=== PATIENT | female | born 1945 | race African-American/Black ===

== ENCOUNTER 2016-08-07 12:18 | Emergency (ER) | payer OTHER ==
[~2016-08-07] VITALS: Ht 152.4 cm; Wt 57.0 kg
[~2016-08-07 12:18] MED LIST: CAPT25TA2 PO; CARV3.12 PO; GLUCTAB PO; GLYB1TAB51 PO; HYDR12.56 PO
[2016-08-07 12:21] VITALS: BP 230/112; PULSE 102; RESP 20; TEMP 98.1; O2SAT 99
--- NOTE | 2016-08-07 13:23 | PD ---
HPI Chief Complaint: Diabetic Time Seen by Provider: 13:23 Travel History International Travel<30 days: No Contact w/Intl Traveler<30days: No Traveled to known affect area: No History of Present Illness HPI 70-year-old female with history of diabetes presents to emergency department for evaluation of elevated blood glucose. Patient states it has been "running high." She denies any associated symptoms with it. No chest or tightness. No difficulty breathing. No recent illnesses, fever, or chills. When told the patient's blood glucose was 404, patient was thrilled that it was "coming down. " PFSH Past Medical History Cardiovascular Problems: Yes Diabetes: Yes Diminished Hearing: No Hypertension: Yes Menopausal: Yes : 0 Social History Alcohol Use: No Tobacco Use: No Substance Use: No Allergies-Medications (Allergen,Severity, Reaction): Coded Allergies: No Known Allergies (Verified , 10/30/13) Reported Meds & Prescriptions Reported Meds & Active Scripts Active Reported Hctz (Hydrochlorothiazide) Unknown Strength Cap Unknown Dose PO DAILY Carvedilol Unknown Strength Tab Unknown Dose PO DAILY Metformin Hcl (Metformin HCl) 500 Mg Tab 500 Mg PO BID Glyburide 5 Mg Tab 5 Mg PO DAILY Captopril 25 Mg Tab 0 PO BID UNKNOWN DOSE Review of Systems Except as stated in HPI: all other systems reviewed are Neg Physical Exam Narrative GENERAL: He SKIN: Warm and dry. HEAD: Atraumatic. Normocephalic. EYES: Pupils equal and round. No scleral icterus. No injection or drainage. ENT: No nasal bleeding or discharge. Mucous membranes pink and moist. NECK: Trachea midline. No JVD. CARDIOVASCULAR: Tachycardic rate and rhythm. No murmur appreciated. RESPIRATORY: No accessory muscle use. Clear to auscultation. Breath sounds equal bilaterally. GASTROINTESTINAL: Abdomen soft, non-tender, nondistended. Hepatic and splenic margins not palpable. MUSCULOSKELETAL: No obvious deformities. No clubbing. No cyanosis. No edema. NEUROLOGICAL: Awake and alert. No obvious cranial nerve deficits. Motor grossly within normal limits. Normal speech. Data Data Last Documented VS Vital Signs Date Time Temp Pulse Resp B/P Pulse Ox O2 Delivery O2 Flow Rate FiO2 08/07/16 12:21 98.1 102 20 230/112 99 Room Air Orders Electrocardiogram (08/07/16 13:05) Basic Metabolic Panel (Bmp) (08/07/16 13:05) Complete Blood Count With Diff (08/07/16 13:05) Beta Hydroxybutyrate (Acetone) (08/07/16 13:05) Urinalysis - C+S If Indicated (08/07/16 13:05) MDM Medical Decision Making Medical Screen Exam Complete: Yes Emergency Medical Condition: Yes Medical Record Reviewed: Yes Differential Diagnosis Hyperglycemia versus DKA versus electively abnormality versus sepsis Narrative Course 70-year-old female presents to emergency department for evaluation. Patient has blood glucose of 405 and is quite hypertensive here in the emergency department triage area. Workup was initiated. Once a medical bed becomes available, patient will be transferred and care assumed by that provider. Condition: Stable Kathleen Brice Aug 07, 2016 13:23
[2016-08-07] MEDS ORDERED: LISI10TA3 PO (14:28)
[2016-08-07] MEDS ORDERED: CARV3.12 PO (14:28)
[2016-08-07] MEDS ORDERED: DONE10TA7 PO (14:28)
[2016-08-07] MEDS ORDERED: LEVEMIR SQ (14:28)
[2016-08-07] MEDS ORDERED: CLON.1T T-DERMAL (14:28)
[2016-08-07] MEDS ORDERED: SODIUM CHLOR 0.9% 1000 ML INJ 1,000 ML IV ONE (14:30)
--- NOTE | 2016-08-07 14:37 | PD ---
Physical Exam Narrative GENERAL: Well-nourished, well-developed patient. SKIN: Warm and dry. HEAD: Normocephalic and atraumatic. EYES: No injection or drainage. ENT: No nasal drainage noted. NECK: Supple, trachea midline. CARDIOVASCULAR: Regular rate and rhythm RESPIRATORY: Breath sounds equal bilaterally. No accessory muscle use. GASTROINTESTINAL: Abdomen soft, non-tender, nondistended. Extremities:Pain with palpation of right knee, no pain with other joints , neurovascularly intact, no lacerations over, compartments soft. NEUROLOGICAL: Awake and alert. Moves all extremities. Normal speech. Data Data Last Documented VS Vital Signs Date Time Temp Pulse Resp B/P Pulse Ox O2 Delivery O2 Flow Rate FiO2 08/07/16 16:45 72 18 190/84 99 08/07/16 12:21 98.1 Room Air Orders Electrocardiogram (08/07/16 13:05) Basic Metabolic Panel (Bmp) (08/07/16 13:05) Complete Blood Count With Diff (08/07/16 13:05) Beta Hydroxybutyrate (Acetone) (08/07/16 13:05) Urinalysis - C+S If Indicated (08/07/16 13:05) Blood Glucose (08/07/16 14:19) Sodium Chlor 0.9% 1000 Ml Inj (Ns 1000 M (08/07/16 14:30) Carvedilol (Coreg) (08/07/16 14:45) Enalaprilat Inj (Vasotec Inj) (08/07/16 14:45) Urine Culture (08/07/16 15:54) Ceftriaxone Inj (Rocephin Inj) (08/07/16 17:45) Lidocaine Pf 1% Inj (Xylocaine-Mpf 1% In (08/07/16 17:45) Labs Laboratory Tests Test 08/07/16 08/07/16 14:40 15:54 White Blood Count 8.0 TH/MM3 Red Blood Count 4.74 MIL/MM3 Hemoglobin 14.2 GM/DL Hematocrit 43.3 % Mean Corpuscular Volume 91.2 FL Mean Corpuscular Hemoglobin 30.0 PG Mean Corpuscular Hemoglobin 32.9 % Concent Red Cell Distribution Width 13.8 % Platelet Count 252 TH/MM3 Mean Platelet Volume 8.7 FL Neutrophils (%) (Auto) 59.8 % Lymphocytes (%) (Auto) 32.5 % Monocytes (%) (Auto) 6.3 % Eosinophils (%) (Auto) 0.7 % Basophils (%) (Auto) 0.7 % Neutrophils # (Auto) 4.8 TH/MM3 Lymphocytes # (Auto) 2.6 TH/MM3 Monocytes # (Auto) 0.5 TH/MM3 Eosinophils # (Auto) 0.1 TH/MM3 Basophils # (Auto) 0.1 TH/MM3 CBC Comment DIFF FINAL Differential Comment Sodium Level 137 MEQ/L Potassium Level 4.8 MEQ/L Chloride Level 101 MEQ/L Carbon Dioxide Level 28.5 MEQ/L Anion Gap 8 MEQ/L Blood Urea Nitrogen 28 MG/DL Creatinine 1.42 MG/DL Estimat Glomerular Filtration 44 ML/MIN Rate Random Glucose 290 MG/DL Calcium Level 9.8 MG/DL B-Hydroxybutyrate 1.02 MMOL/L Urine Color LIGHT-YELLOW Urine Turbidity HAZY Urine pH 5.5 Urine Specific [place] 1.019 Urine Protein 100 mg/dL Urine Glucose (UA) 1000 mg/dL Urine Ketones 10 mg/dL Urine Occult Blood SMALL Urine Nitrite NEG Urine Bilirubin NEG Urine Urobilinogen LESS THAN 2.0 MG/DL Urine Leukocyte Esterase MOD Urine RBC 5 /hpf Urine WBC 10 /hpf Urine Squamous Epithelial 2 /hpf Cells Urine Bacteria RARE /hpf Microscopic Urinalysis Comment CULTURE INDICATED MDM Supervised Visit with [facility]: Yes Interpretation(s) Outpatient right knee x-ray no acute CBC & BMP Diagram 08/07/16 14:40 UA with possible signs of infection Narrative Course I, Dr. gill, have reviewed the advance practice practitioner's documentation and am in agreement, met with the patient face to face, made the diagnosis, and the medical decision making was done by me. *My assessment and Findings: 70-year-old female presents with elevated blood pressure and glucose as an outpatient. She states she was feeling fine but her home health nurse advised her to come in to get checked out. She states her sugar at home was 545. She does note she has been having frequent falls but did not hit her head or black out. She states she had an x-ray of her right knee yesterday but did not get the results from [facility] yet. We will follow protocol ordered from triage and dose with home blood pressure medication and IV fluid bolus while awaiting further testing. In terms of glucose patient states that she already did her insulin prior to arrival 190/84 on recheck, labs mild elevation in creatinine with last from 3 years ago , this will need to be followed with her primary care physician, glucose is mildly elevated with bicarbonate normal, urine with possible signs of infection and patient denies complaints of uti Will give one dose of rocephin in ed as patient can't swallow pills while awaiting culture, she will continue to take her blood pressure medication and insulin like she should keeping a log with assistance through her home health nurse,Patient denies any new complaints and states that they are feeling better. Patient happy with care, all questions answered. Patient knows that follow up is incumbent on them and to return to the emergency room immediately if new or worsening symptoms develop. Patient given strict return precautions, vitals reviewed and are normal, agrees to further workup as an outpatient. . Diagnosis Primary Impression: Hypertensive urgency Additional Impressions: Poorly controlled diabetes mellitus UTI (urinary tract infection) Qualified Code: N39.0 - Urinary tract infection without hematuria, site unspecified Elevated serum creatinine Patient Instructions: General Instructions Additional Instruction: Return as needed, follow with primary tomorrow, keep blood pressure and sugar log Med/Other Pt SpecificInfo: No Change to Meds Disposition: 01 DISCHARGE HOME Condition: Stable Kelsy Gill MD Aug 07, 2016 14:37 Kelsy Gill MD Aug 07, 2016 14:37
[2016-08-07] MEDS ORDERED: CARVEDILOL 3.125 MG TAB PO ONE (14:45)
[2016-08-07] MEDS ORDERED: ENALAPRILAT 1.25 MG/ML VIAL IV PUSH ONE (14:45)
[2016-08-07 15:05] LABS: AUTOMATED NEUTROPHIL # 4.8 TH/MM3 (1.8-7.7); BASOPHIL # 0.1 TH/MM3 (0-0.2); BASOPHIL % 0.7 % (0.0-2.0); EOSINOPHIL # 0.1 TH/MM3 (0-0.4); EOSINOPHIL % 0.7 % (0.0-4.0); HEMATOCRIT 43.3 % (35.0-46.0); HEMO FLAGS DIFF FINAL; LYMPH % 32.5 % (9.0-44.0); LYMPHOCYTE # 2.6 TH/MM3 (1.0-4.8); MEAN CELL VOLUME 91.2 FL (80.0-100.0); MEAN CORPUSCULAR HGB CONC 32.9 % (32.0-36.0); MONO % 6.3 % (0.0-8.0); NEUT % 59.8 % (16.0-70.0); PLATELET COUNT 252 TH/MM3 (150-450); RED BLOOD COUNT 4.74 MIL/MM3 (4.00-5.30); RED CELL DISTRIBUTION WIDTH 13.8 % (11.6-17.2)
[2016-08-07 15:16] LABS: BETA-HYDROXYBUTYRATE 1.02 MMOL/L (0.00-0.39)
[2016-08-07 15:19] LABS: BICARBONATE 28.5 MEQ/L (21.0-32.0)
[2016-08-07 15:23] LABS: POTASSIUM 4.8 MEQ/L (3.5-5.1)
[2016-08-07 16:25] LABS: BACTERIA, URINE RARE /hpf; BLOOD, URINE SMALL (NEG); COMMENT (UR) CULTURE INDICATED; CULTURE IF INDICATED CULTURE INDICATED; GLUCOSE,URINE 1000 mg/dL (NEG); KETONE, URINE 10 mg/dL (NEG); NITRITE,URINE NEG (NEG); PH, URINE 5.5 (5.0-8.5); SQUAMOUS EPITHELIAL CELL URINE 2 /hpf (0-5); URINE COLOR LIGHT-YELLOW (YELLW/STRAW)
[2016-08-07 16:45] VITALS: BP 190/84; PULSE 72; RESP 18; O2SAT 99
[2016-08-07] MEDS ORDERED: MACR100C2 PO (17:05)
[2016-08-07] MEDS ORDERED: LIDOCAINE HCL 1% PF 30 ML VIAL XX ONE (17:45)
--- NOTE | 2016-08-08 18:32 | EKG ---
Date Performed: 08/07/2016 Time Performed: 14:47:54 PTAGE: 70 years EKG: Sinus rhythm RIGHT BUNDLE BRANCH BLOCK LEFT ANTERIOR FASCICULAR BLOCK VOLTAGE CRITERIA FOR LVH When compared to p revious tracing, rhythm is more clearly sinus. ABNORMAL ECG PREVIOUS TRACING : 10/30/2013 13.14 DOCTOR: Collin Devi Interpretating Date/Time 08/08/2016 18:31:22
== END 2016-08-07 18:45 | disposition home or self-care (01) ==
LOC: NEPE 12:18
DX: I16.0 Hypertensive urgency (principal); E11.65 Type 2 diabetes mellitus with hyperglycemia; N39.0 Urinary tract infection, site not specified; I10 Essential (primary) hypertension; R94.31 Abnormal electrocardiogram [ECG] [EKG]
CPT/HCPCS: 80048; 81001; 82010; 85025; 87086; 93005; 96361; 96372; 96374; 99283; J0696; J7030

== ENCOUNTER 2017-06-14 13:10 | Emergency (ER) | payer OTHER ==
[~2017-06-14] VITALS: Ht 149.9 cm; Wt 60.0 kg
[~2017-06-14 13:10] MED LIST changes: -CAPT25TA2 PO; +CLON.1T T-DERMAL; +DONE10TA7 PO; -GLUCTAB PO; -GLYB1TAB51 PO; -HYDR12.56 PO; +LEVEMIR SQ; +LISI10TA3 PO
[2017-06-14 13:13] VITALS: BP 206/112; PULSE 88; RESP 16; TEMP 98.5; O2SAT 99
[2017-06-14] MEDS ORDERED: ATOR10TA15 PO (13:42)
[2017-06-14] MEDS ORDERED: CLON0.1T PO (13:42)
[2017-06-14] MEDS ORDERED: KETOROLAC TROMETHAMINE 60 MG/2 ML (IM) VIAL IM ONE (14:30)
--- NOTE | 2017-06-14 14:47 | PD ---
HPI Chief Complaint: Fall Time Seen by Provider: 14:09 Travel History International Travel<30 days: No Contact w/Intl Traveler<30days: No Traveled to known affect area: No History of Present Illness HPI since fall c/o right hip/knee pain that's make it difficult to ambulate since the fall...pt denies loc, denies n/v/d/cp/abdpain/beth/back pain////....it occurred while she was trying to get into an suv and she misstepped and fell down. this was witnessed and no report of unconsciousness nor lightheadedness/ palpitations/cp prior to fall. PFSH Past Medical History Cardiovascular Problems: Yes Diabetes: Yes Diminished Hearing: No Hypertension: Yes Menopausal: Yes : 0 Social History Alcohol Use: No Tobacco Use: No Substance Use: No Allergies-Medications (Allergen,Severity, Reaction): Coded Allergies: No Known Allergies (Verified , 08/07/16) Reported Meds & Prescriptions Reported Meds & Active Scripts Active Ultram (Tramadol HCl) 50 Mg Tab 50 Mg PO Q4H PRN Reported Atorvastatin (Atorvastatin Calcium) 10 Mg Tab 10 Mg PO HS Clonidine (Clonidine HCl) 0.1 Mg Tab 0.1 Mg PO BID Levemir Inj (Insulin Detemir) 1,000 unit/ 10 ML Vial 1 Units SQ Do not mix with any other Insulin. Lisinopril 10 Mg Tab 10 Mg PO DAILY Carvedilol 3.125 Mg Tab 3.125 Mg PO BID Review of Systems General / Constitutional: No: Fever Eyes: No: Visual changes HENT: No: Headaches Cardiovascular: No: Chest Pain or Discomfort Respiratory: No: Shortness of Breath Gastrointestinal: No: Abdominal Pain Genitourinary: No: Dysuria Musculoskeletal: Positive: Pain Skin: No Rash Neurologic: No: Weakness Psychiatric: No: Depression Endocrine: No: Polydipsia Hematologic/Lymphatic: No: Easy Bruising Physical Exam Narrative GENERAL: SKIN: Warm and dry. HEAD: Atraumatic. Normocephalic. EYES: Pupils equal and round. No scleral icterus. No injection or drainage. ENT: No nasal bleeding or discharge. Mucous membranes pink and moist. NECK: Trachea midline. No JVD. CARDIOVASCULAR: Regular rate and rhythm. RESPIRATORY: No accessory muscle use. Clear to auscultation. Breath sounds equal bilaterally. GASTROINTESTINAL: Abdomen soft, non-tender, nondistended. MUSCULOSKELETAL: Extremities without clubbing, cyanosis, or edema. No obvious deformities. mild ttp along lateral prox thigh region, also mild edema to rt knee, but able to bear weight. NEUROLOGICAL: Awake and alert. No obvious cranial nerve deficits. Motor grossly within normal limits. Five out of 5 muscle strength in the arms and legs. Normal speech. PSYCHIATRIC: Appropriate mood and affect; insight and judgment normal. Data Data Last Documented VS Orders Orders Knee, Complete (4vws) (06/14/17 ) Ketorolac Inj (Toradol Inj) (06/14/17 14:30) Hip, Uni(Ap&Lat) W Ap Pelvis (06/14/17 ) Ed Discharge Order (06/14/17 15:41) [facility] Medical Decision Making Medical Screen Exam Complete: Yes Emergency Medical Condition: Yes Medical Record Reviewed: Yes Differential Diagnosis fx v dislocation v subluxation v contusion Narrative Course HIP/PELVIS AND KNEE XRAYS DID NOT SHOW FRACTURE/DISLOCATIONS BUT KNEE SHOWED EFFUSION Diagnosis Primary Impression: Contusion, hip and thigh Qualified Codes: S70.01XD - Contusion of right hip, subsequent encounter; S70.11XD - Contusion of right thigh, subsequent encounter Additional Impression: Knee effusion, right Patient Instructions: Contusion in Adults (DC), General Instructions Scripts Tramadol (Ultram) 50 Mg Tab 50 MG PO Q4H Y for PAIN, #14 TAB 0 Refills Prov: Mateo Samuel MD 06/14/17 Disposition: 01 DISCHARGE HOME Condition: Stable Mateo Samuel MD Jun 14, 2017 14:47
--- NOTE | 2017-06-14 15:10 | RADRPT ---
EXAM DATE/TIME: 06/14/2017 14:40 [facility] COMPARISON: No previous studies available for comparison. INDICATIONS : Patient complains of right hip pain status post fall. MEDICAL HISTORY : None. SURGICAL HISTORY : None. ENCOUNTER: Initial ACUITY: 1 week PAIN SCORE: 7/10 LOCATION: Right Hip FINDINGS: Examination of the right hip was performed with AP Pelvis. The primary and secondary trabecular maurice chadd of the femoral neck is intact. The hip joint is of normal width without significant sclerosis or bony hypertrophy. The acetabulum is grossly intact. Diffuse mass or calcifications involving the fe moral arteries. CONCLUSION: 1. No acute fracture or dislocation. 2. Diffuse femoral vascular calcifications. Chaz Singh MD on June 14, 2017 at 15:07 Board Certified Radiologist. This report was verified electronically.
--- NOTE | 2017-06-14 15:12 | RADRPT ---
EXAM DATE/TIME: 06/14/2017 14:43 [facility] COMPARISON: No previous studies available for comparison. INDICATIONS : Patient complains of right knee pain status post fall. MEDICAL HISTORY : None. SURGICAL HISTORY : None. ENCOUNTER: Initial ACUITY: 1 week PAIN SCORE: 7/10 LOCATION: Right Knee FINDINGS: Four view examination of the right knee demonstrates no evidence of fracture or dislocation. Bony mi neralization is normal. The articular surfaces are intact. 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 Probable small suprapatellar effusion. Diffuse vascular calcifica tions. CONCLUSION: 1. Mild degenerative osteoarthritis with probable Small suprapatellar effusion. 2. No acute fracture or dislocation. 3. Diffuse vascular cavitations. Chaz Singh MD on June 14, 2017 at 15:09 Board Certified Radiologist. This report was verified electronically.
[2017-06-14] MEDS ORDERED: TRAM50 PO (15:40)
== END 2017-06-14 15:56 | disposition home or self-care (01) ==
LOC: NEPD 13:10
DX: S70.01XA Contusion of right hip, initial encounter (principal); S70.11XA Contusion of right thigh, initial encounter; M25.461 Effusion, right knee; E11.9 Type 2 diabetes mellitus without complications; I10 Essential (primary) hypertension; Z79.4 Long term (current) use of insulin; Z86.79 Personal history of other diseases of the circulatory system; W18.39XA Other fall on same level, initial encounter
CPT/HCPCS: 73502; 73564; 96372; 99284; J1885